=== PATIENT | male | born 1985 | race Caucasian/White ===

== ENCOUNTER 2016-11-07 12:57 | Emergency (ER) | payer OTHER ==
[~2016-11-07] VITALS: Ht 185.4 cm; Wt 111.1 kg
[2016-11-07] MEDS ORDERED: MELO15TA4 PO (13:04)
[2016-11-07] MEDS ORDERED: SERT1TAB16 PO (13:06)
[2016-11-07] MEDS ORDERED: GABA-282 PO (13:06)
[2016-11-07] MEDS ORDERED: VITA100T98 PO (13:06)
[2016-11-07] MEDS ORDERED: ZOMI5TAB2 PO (13:06)
[2016-11-07] MEDS ORDERED: ZANA4TAB PO (13:06)
[2016-11-07] MEDS ORDERED: FISH1000 PO (13:06)
[2016-11-07] MEDS ORDERED: VITA-122 PO (13:06)
[2016-11-07] MEDS ORDERED: ALBU17IN2 INH (14:27)
[2016-11-07] MEDS ORDERED: ZITHTAB PO (14:27)
[2016-11-07 14:38] VITALS: BP 125/79
== END 2016-11-07 14:41 | disposition home or self-care (01) ==
LOC: M ED 13:46
DX: J20.9 Acute bronchitis, unspecified (principal); R50.9 Fever, unspecified; Z79.899 Other long term (current) drug therapy

== ENCOUNTER → 2017-04-03 | Outpatient (REF) | payer OTHER ==
[~2017-04-03] MED LIST: ALBU17IN2 INH; FISH1000 PO; GABA-282 PO; MELO15TA4 PO; SERT25TA88 PO; VITA-122 PO; VITA100T98 PO; ZANA4TAB PO; ZITHTAB PO; ZOMI5TAB2 PO
== END ==
LOC: M LAB REF 13:13
PROVIDERS: ATTEND Urology
DX: Z30.2 Encounter for sterilization (principal)